=== PATIENT | female | born 1995 | race Caucasian/White ===

== ENCOUNTER 2018-02-15 15:53 | Outpatient (REF) | payer MEDICAID, SELFPAY ==
--- NOTE | 2018-02-15 15:00 | PAPFT_PTH ---
PATIENT: Esthela Baumann LOC: [facility] U#:[id number] AGE/SX: 22/F ROOM: RE02/15/[address]: Saira Ku NP : 1995 BED: DIS: 02/15/2018 SPEC #: [id number] RECD: 02/16/18 12:55 STATUS: SHARLA MOORE #: [id number] CORNELIA: 02/15/18 15:[address]: Saira Ku NP DEPT: [facility] Cytology RECD BY: Zamzam Knott ENTERED: 02/16/18 12:56 SP TYPE: PAPFT OTHR DR: Megan Weaver DNP Tissues: 1 - CX/ENDOCX FOR PAP SMEARS Procedures: PAP THIN PREP/UVM Screening Comments: [id number] (CHLAMYDIA/GC)
[2018-02-17 13:53] LABS: Chlamydia Result Negative; GC Result Negative; Specimen Description SEE COMMENTS
== END 2018-02-15 16:13 ==
LOC: LBN 15:53
PROVIDERS: PCP Nurse Practitioner Gerontology; Visit Provider Nurse Practitioner Women's Health
DX: Z12.4 Encounter for screening for malignant neoplasm of cervix (principal); Z11.3 Encounter for screening for infections with a predominantly sexual mode of transmission
CPT/HCPCS: 87491; 87591; 88142

== ENCOUNTER 2018-06-16 15:50 | Outpatient (REF) | payer MEDICAID, SELFPAY ==
[2018-06-16 16:32] LABS: *AMPHETAMINES SCREEN URINE Negative (Negative); *BARBITURATES SCREEN URINE Negative (Negative); *BENZODIAZEPINES SCREEN URINE Negative (Negative); Cannabinoids THC Negative (Negative); Cocaine Screen,Urine Negative (Negative); METHADONE URINE SCREEN Negative (Negative); OPIATES URINE SCREEN Negative (Negative)
[2018-06-16 16:35] LABS: Tricyclic Antidepressants Negative (Negative)
[2018-06-19 14:04] LABS: Chlamydia Result Negative; GC Result Negative; Specimen Description CERVIX
[2018-06-22 13:37] LABS: Buprenorphine Negative; Norbuprenorphine Negative
== END 2018-06-16 16:10 ==
LOC: LBN 15:50
PROVIDERS: PCP Nurse Practitioner Gerontology; Visit Provider Advanced Practice Midwife
DX: Z34.91 Encounter for supervision of normal pregnancy, unspecified, first trimester (principal)
CPT/HCPCS: 80307; 87491; 87591; 87086

== ENCOUNTER 2018-06-27 16:50 | Emergency (ER) | payer MEDICAID, SELFPAY ==
[2018-06-27 16:54] VITALS: BP 120/83; PULSE 134; RESP 18; TEMP 37.2; O2SAT 100
--- NOTE | 2018-06-27 18:23 | W.ED.GENAD ---
Discharge Plan Disposition Patient Disposition: HOME Condition: Good Discharge Details Chief Complaint: GenMedical Clinical Impression: Flu-like symptoms Primary Care Provider: Megan Weaver ED Provider: [place] Home Meds and New Rx's Prescriptions: New oseltamivir [Tamiflu] 75 mg capsule 75 mg PO BID 5 Days Qty: 10 RF: 0 No Action prenat.vits,edward,nja-sqzs-yfzql tablet 1 tab PO DAILY RF: 0 Discharge Instructions Instructions: Influenza (ED) Additional Instructions: Please take medication as directed and Tylenol as needed for fever. Please follow-up immediately with your primary care provider and your obstetrics game designer/creative director. Please drink 10-12 cups of water per day and stay well-hydrated. If you notice any worsening of your symptoms, or any new symptoms such as vomiting, diarrhea, worse fever, chills, shortness of breath, chest pain, numbness, weakness, or fainting , please return immediately to the emergency department for reevaluation. Please follow up with your primary care provider as soon as possible for reassessment and reevaluation. As always, it was a pleasure participating in your medical care today. Referrals: Megan Weaver, VENEER TAPER [Primary Care Provider] - Discharge Data Discharge Date/Time-TO BE ENTERED AT DEPARTURE: 06/27/18 18:32 Medical Decision Making This is a very pleasant 22-year-old male who is currently 13 weeks who presents with signs and symptoms of chills, cough, mild sore throat, achiness, and fever. She has been taking Tylenol for control of her symptoms and fever. is influenza positive, daughter is influenza positive. She denies any concerning red flags of abdominal pain, pelvic tenderness, neck stiffness. Vital signs demonstrate mild tachycardia initially which did notably improve while here. No evidence of hypoxemia, tachypnea, or shortness of breath, or pleuritic chest pain. Patient's influenza was performed, and rapid test is negative, however with her signs and symptoms clinically consistent with influenza, as well as her 2 close family members both also being positive with influenza and her having identical symptoms to them, I do feel that her clinical disposition and symptoms are significant for influenza. The patient's symptoms started within the last 18 hours, and I feel she would be a candidate for Tamiflu. I had a long discussion with the patient regarding the risks and benefits of Tamiflu during , at this time patient is requesting Tamiflu which I do think is very reasonable due to both her clinical picture, and symptomatology during . Feel that the patient be safely discharged home at this time with close follow-up with her obstetrics game designer/creative director as well as her primary care provider. We discussed red flags which to return, including signs and symptoms concerning for dehydration, pelvic pain, neck stiffness, or other concerning red flags. I have extensively reviewed the treatment plan and discharge instructions with the patient and their family. I have addressed all patient concerns at this time. The patient and family was made aware of what symptoms to monitor for that would warrant a return to the emergency department. Discussed the plan with the patient and family, they demonstrate verbal understanding and agreement with our assessment and plan at this time. HPI General Date/Time Provider Initiated Documentation: 06/27/18 17:14. HPI Narrative: This is a 22-year-old female with no significant past medical history except for being 13 weeks at this time, who presents today with aches, chills, mild cough, mild sore throat, that all started today. Her was recently diagnosed with influenza and her daughter is also flu positive. Patient denies any neck pain, chest pain, shortness of breath, abdominal pain. She denies any vaginal or pelvic discharge. She denies any dysuria, hematuria, or increase in urinary frequency. Patient has not gotten her influenza vaccine this year. Patient denies any hemoptysis. She has no other complaints at this time. She has been taking Tylenol for her chills and fever. She denies any other modifying factors. She has no other complaints at this time. She denies any recent surgeries, IV illicit drug use, or pertinent family history. Related Data Home Medications Medication Instructions Recorded Confirmed 1 tab PO DAILY 04/28/18 06/27/18 vitamin,calcium,hqwxlmkt-cgrl-tidcs acid tablet oseltamivir [Tamiflu] 75 mg PO BID 5 Days #10 cap 06/27/18 Previous Rx's Medication Instructions Recorded oseltamivir [Tamiflu] 75 mg PO BID 5 Days #10 cap 06/27/18 Allergies Allergy/AdvReac Type Severity Reaction Status Date / Time nickel [Nickel] Allergy Intermediate skin Unverified 06/16/18 10:03 reaction amoxicillin [Amoxicillin] Allergy Unknown Unverified 06/16/18 10:03 General Stated Complaint: GenMedical HERNAN: 4 Review of Systems Review of Systems All systems reviewed & are unremarkable except as noted in HPI and below PFSH Medical History Known health problems: none (Acute) Bronchiolitis (Resolved 07/18/94) Pneumonia (Resolved 05/25/02) Social History household members: spouse, children and other details: Evgeny and daughter number of children: 1 Smoking/Tobacco Use Status: Never alcohol intake: former substance use type: does not use Female Reproductive History Menstrual Age of Menarche: 10 Duration of menses: 3-5 days control method: pills History History 2 Para 1 Hx # Term Pregnancies 1 Multiple births 0 Hx # Pregnancies 0 Ectopic pregnancies 0 AB induced 0 Hx Number of Living Children 1 AB spontaneous 0 Exam Narrative Exam Narrative: 1.Const: Well-nourished, Well-developed, appearing stated age 2.Eyes: PERRL, no conjunctival injection, and symmetrical lids. 3.ENT: Atraumatic external nose and ears. Moist MM. Neck: Symmetric, trachea midline, No thyromegaly. Patient demonstrates good movement of cervical neck. There is no nuchal rigidity, no nuchal tenderness. Patient is able to flex the neck without any difficulty or significant pain. Negative Kernig's and Brudzinski sign. No evidence of significant erythema in the posterior oropharynx, no evidence of otitis media or externa. 4.CVS: +S1/S2, No murmurs or gallops. Peripheral pulses 2+ and equal in all extremities. Brisk capillary refill in all extremities. 5.RESP: Unlabored respiratory effort. Clear to auscultation bilaterally. No wheezes rales or rhonchi 6.GI: Soft, Nontender/Nondistended, No hepatosplenomegaly. No guarding or rebound. No evidence of abdominal distention or pain. No pelvic tenderness. 7.MSK: Normocephalic/Atraumatic, Extremities w/o deformity or ttp No cyanosis or clubbing, Normal movement of all extremities 8.Skin: Warm, Dry. No rashes or lesions. 9.Neuro: cutter grind tool technician II-XII grossly intact. Sensation grossly intact, no focal neurologic deficits. 10.Psych: (AAO) x3. Appropriate mood and affect Course Vital Signs Temperature 37.2 C 06/27/18 16:54 Pulse 134 H 06/27/18 16:54 Respiratory Rate 18 06/27/18 16:54 Blood Pressure 120/83 06/27/18 16:54 Pulse Oximetry 100 06/27/18 16:54 Temperature 37.2 C 06/27/18 16:54 Temperature Source Temporal Artery Scan 06/27/18 16:54 Pulse 134 H 06/27/18 16:54 Respiratory Rate 18 06/27/18 16:54 Respiratory Effort Non-Labored 06/27/18 17:06 Respiratory Depth Normal 06/27/18 17:06 Respiratory Pattern Normal 06/27/18 17:06 Blood Pressure 120/83 06/27/18 16:54 Pulse Oximetry 100 06/27/18 16:54 Oxygen Delivery Method Room Air 06/27/18 16:54 Oxygen Flow Rate 0 06/27/18 16:54 Lab/Test Results Lab/Test Results: 06/27/18 17:35 Nasopharynx Influenza Types A,B Antigen - Final
[2018-06-27 18:34] VITALS: BP 120/83; PULSE 110; RESP 18; TEMP 37.2; O2SAT 100
== END 2018-06-27 18:32 | disposition home or self-care (01) ==
PROVIDERS: Emergency Provider Student in an Organized Health Care Education/Training Program; PCP Nurse Practitioner Gerontology
DX: J11.1 Influenza due to unidentified influenza virus with other respiratory manifestations (principal); Z3A.13 13 weeks gestation of pregnancy
CPT/HCPCS: 87449; 99283

== ENCOUNTER 2018-07-11 11:12 | Outpatient (CLI) | payer MEDICAID, SELFPAY ==
[2018-07-11 11:51] LABS: Abs Immature Grans 0.04 k/cumm (0.0-0.09); Absolute Basophil Count 0.02 k/cumm (0.0-0.2); Absolute Eosinophil Count 0.06 k/cumm (0.0-0.7); Absolute Lymphocyte Count 1.45 k/cumm (1.2-3.4); Absolute Monocyte Count 0.56 k/cumm (0.11-0.7); Absolute Neutrophil Count 5.22 k/cumm (1.2-6.7); Basophils % 0.3; Eosinophils % 0.8; HCT 32.5 % (36.0-46.0); HGB 11.6 g/dL (12.0-15.5); Immature Grans % 0.5; Lymphocytes % 19.7; Mean Corp. HGB Concentration 35.7 g/dL (32.0-36.0); Mean Corpuscular Hemoglobin 31.1 pg (27.0-33.0); Mean Corpuscular Volume 87.1 fL (80-95); Monocytes % 7.6; Neutrophils % 71.1; Platelet Count 217 x1000/uL (130-400); RBC 3.73 m/cumm (4.00-5.20); RBC Distribution Width 13.6 % (11.7-14.6); White Blood Cell Count 7.35 k/cumm (4.4-10.8)
[2018-07-11 12:01] LABS: Glucose,1 Hr (Glucola) 96 mg/dL (80-140)
[2018-07-11 12:58] LABS: TSH (W/Ref FT4) 2.79 uIU/mL (0.358-3.74)
[2018-07-12 10:01] LABS: Hepatitis B Surface Ag Negative (NEGAT)
[2018-07-12 10:18] LABS: Hepatitis C Ab w Rflx HCV PCR Negative (NEGAT)
[2018-07-12 11:19] LABS: HIV-1/2 Ag & Ab Screen Negative (NEGAT)
[2018-07-12 11:57] LABS: Syphilis Serology (RPR) Negative (Negative)
[2018-07-12 12:03] LABS: Rubella IgG Ab (UVM) Positive
[2018-07-12 13:13] LABS: Varicella IgG Antibody Equivocal
== END 2018-07-11 11:32 ==
PROVIDERS: PCP Nurse Practitioner Gerontology; Visit Provider Advanced Practice Midwife
DX: Z34.91 Encounter for supervision of normal pregnancy, unspecified, first trimester (principal); Z11.59 Encounter for screening for other viral diseases; Z01.84 Encounter for antibody response examination; Z11.4 Encounter for screening for human immunodeficiency virus [HIV]
CPT/HCPCS: 36415; 80055; 82950; 86787; 86803; 86850; 86900; 86901; 87340; 87389; 84443; 86592; 86762

== ENCOUNTER 2018-08-11 01:25 | Outpatient (CLI) | payer MEDICAID, SELFPAY ==
--- NOTE | 2018-08-11 10:02 | DI.US_ITS ---
SYMPTOMS/DIAGNOSIS: , SURVEY, Z34.90 OB ULTRASOUND: There is a single living intrauterine gestation in variable position. The placenta is posterior. The biometric measurements correspond to 20 weeks 0 days. No abnormalities are identified. The amount of amniotic fluid appears visually normal. IMPRESSION: survey is within normal limits. Many abnormalities cannot be diagnosed. A normal exam does not exclude a congenital anomaly. Radiology No. [id number] LMP: Exam Date: 08/11/18 [facility] wks days on EDC ([facility]) 19+3 - 01/02/19 Confirmed: HISTORY: survey PREDICTED GESTATIONAL AGE NUMBER 19+3 weeks with a range of 18+3 weeks to 20+3 weeks. 1 Determined by 1STUS X LMP___HISTORY Info. pertaining to fetus # PLACENTA PRESENTATION Grade I Cephalic___ Anterior___Posterior X Breech____ Right Left Transverse(head right___ Fundal___Low-lying___Previa___ Transverse(head left___ Varying X BIOMETRY AMNIOTIC FLUID BPD: 44 mm 19+2 weeks Normal HC: 175 mm 20+0 weeks AC: 145 mm 19+5 weeks FL: 35 mm 21+0 weeks AMNIOTIC FLUID INDEX >26 WK CRL: mm weeks Cisterna Magna: 6 mm CI: 73 RUQ: LUQ Cerebellum: 2.0 cm EFW: 343 grams Percentile 89% RLQ: LLQ Total: cms Composite AGE= 20+0 wks EDC by US 12/29/18 BIOPHYSICAL PROFILE ANATOMY IDENTIFIED SCORE 0/2 Heart: 4-Chamber X Rate: 143 BPM LVOT: X RVOT: X Amniotic Fluid(>2cms)____ Stomach: X Kidneys: X Respirations (>30 secs) Bladder: X Post. Fossa: X Body Flex/Extension 3 vessel cord: X Ventricles: X cord insertion: X Lips: X Extremity Flex/Extension spinal morphology: X Nose: X Total Score= Palate: X NS=not seen
== END 2018-08-11 01:45 ==
PROVIDERS: PCP Nurse Practitioner Family; Visit Provider Advanced Practice Midwife
DX: Z34.92 Encounter for supervision of normal pregnancy, unspecified, second trimester (principal)
CPT/HCPCS: 76805

== ENCOUNTER 2018-10-06 08:45 | Outpatient (CLI) | payer MEDICAID, SELFPAY ==
[2018-10-06 10:25] LABS: HCT 34.2 % (36.0-46.0); Mean Corp. HGB Concentration 35.1 g/dL (32.0-36.0); Mean Corpuscular Hemoglobin 30.9 pg (27.0-33.0); Mean Corpuscular Volume 88.1 fL (80-95); Mean Platelet Volume 10.9 fL (8.0-11.0); Platelet Count 213 x1000/uL (130-400); RBC 3.88 m/cumm (4.00-5.20); White Blood Cell Count 8.62 k/cumm (4.4-10.8)
[2018-10-06 10:31] LABS: Glucose,1 Hr (Glucola) 83 mg/dL (80-140)
== END 2018-10-06 09:05 ==
PROVIDERS: Advanced Practice Midwife; PCP Nurse Practitioner Family; Visit Provider Advanced Practice Midwife
DX: Z34.93 Encounter for supervision of normal pregnancy, unspecified, third trimester (principal)
CPT/HCPCS: 36415; 82950; 85027

== ENCOUNTER 2018-12-06 11:21 | Outpatient (REF) | payer MEDICAID, SELFPAY ==
[2018-12-06 12:13] LABS: *AMPHETAMINES SCREEN URINE Negative (Negative); *BARBITURATES SCREEN URINE Negative (Negative); *BENZODIAZEPINES SCREEN URINE Negative (Negative); Cannabinoids THC Negative (Negative); Cocaine Screen,Urine Negative (Negative); METHADONE URINE SCREEN Negative (Negative); OPIATES URINE SCREEN Negative (Negative)
[2018-12-06 12:14] LABS: Tricyclic Antidepressants Negative (Negative)
[2018-12-09 13:00] LABS: Buprenorphine Negative; Norbuprenorphine Negative
== END 2018-12-06 11:41 ==
LOC: LBN 11:21
PROVIDERS: PCP Nurse Practitioner Family; Visit Provider Advanced Practice Midwife
DX: Z34.93 Encounter for supervision of normal pregnancy, unspecified, third trimester (principal); Z36.85 Encounter for antenatal screening for Streptococcus B
CPT/HCPCS: 80307; 87081

== ENCOUNTER 2019-01-02 05:00 | Inpatient (IN) | payer MEDICAID, SELFPAY ==
[2019-01-02 07:40] LABS: HCT 36.3 % (36.0-46.0); HGB 12.8 g/dL (12.0-15.5); Mean Corp. HGB Concentration 35.3 g/dL (32.0-36.0); Mean Corpuscular Hemoglobin 31.3 pg (27.0-33.0); Mean Corpuscular Volume 88.8 fL (80-95); Mean Platelet Volume 10.9 fL (8.0-11.0); Platelet Count 213 x1000/uL (130-400); RBC 4.09 m/cumm (4.00-5.20); RBC Distribution Width 13.9 % (11.7-14.6); White Blood Cell Count 11.89 k/cumm (4.4-10.8)
[2019-01-02] MEDS: Ibuprofen 600 MG TAB PO (17:21)
[2019-01-02] MEDS: Acetaminophen 325 MG TAB 650 MG PO (17:22)
[2019-01-03] MEDS: Ibuprofen 600 MG TAB PO (04:49)
[2019-01-03] MEDS: Docusate Sodium 100 MG CAP PO (04:49)
[2019-01-03] MEDS: Acetaminophen 325 MG TAB 650 MG PO (04:49)
[2019-01-03 07:17] LABS: HCT 34.3 % (36.0-46.0); HGB 11.8 g/dL (12.0-15.5); Mean Corp. HGB Concentration 34.4 g/dL (32.0-36.0); Mean Corpuscular Hemoglobin 30.9 pg (27.0-33.0); Mean Corpuscular Volume 89.8 fL (80-95); Mean Platelet Volume 10.8 fL (8.0-11.0); Platelet Count 211 x1000/uL (130-400); RBC 3.82 m/cumm (4.00-5.20); RBC Distribution Width 14.1 % (11.7-14.6)
== END 2019-01-03 15:10 | disposition home or self-care (01) | DRG 807 ==
PROVIDERS: Admitting Provider Advanced Practice Midwife; PCP Nurse Practitioner Family; Visit Provider Advanced Practice Midwife
DX: O70.0 First degree perineal laceration during delivery (principal); Z37.0 Single live birth; Z3A.40 40 weeks gestation of pregnancy; O75.89 Other specified complications of labor and delivery; O99.214 Obesity complicating childbirth; E66.9 Obesity, unspecified; R42 Dizziness and giddiness; Z67.40 Type O blood, Rh positive
CPT/HCPCS: 36415; 85027; 86850; 86900; 86901

== ENCOUNTER 2019-02-14 14:11 | Outpatient (REF) | payer MEDICAID, SELFPAY ==
--- NOTE | 2019-02-14 14:10 | PAPFT_PTH ---
PATIENT: Esthela Baumann LOC: [facility] U#:[id number] AGE/SX: 23/F ROOM: RE02/14/[address]: Catrachita Dailey CNM : 1995 BED: DIS: 02/14/2019 SPEC #: [id number] RECD: 02/14/19 16:28 STATUS: SHARLA RECatracho #: [id number] CORNELIA: 02/14/19 14:[address]: Catrachita Dailey DEPT: [facility] Cytology RECD BY: Zamzam Knott ENTERED: 02/14/19 16:28 SP TYPE: PAPFT ANNY DR: Sandy Rizzo, WIRE CHIEF Tissues: 1 - CX/ENDOCX FOR PAP SMEARS Procedures: PAP THIN PREP/UVM Screening Comments: [id number]
== END 2019-02-14 14:31 ==
LOC: LBN 14:11
PROVIDERS: PCP Nurse Practitioner Family; Visit Provider Advanced Practice Midwife
DX: Z12.4 Encounter for screening for malignant neoplasm of cervix (principal)
CPT/HCPCS: 88142

== ENCOUNTER 2019-08-15 22:46 | Outpatient (REF) | payer OTHER, SELFPAY | END 2019-08-15 23:06 | LOC: LBN 22:46 | PROVIDERS: PCP Nurse Practitioner Family; Visit Provider Nurse Practitioner Family | DX: J02.9 Acute pharyngitis, unspecified (principal) | CPT/HCPCS: 87077; 87070 ==

== ENCOUNTER 2020-05-08 16:28 | Outpatient (REF) | payer OTHER, SELFPAY ==
[2020-05-11 16:47] LABS: COVID-19 RT-PCR Result NEGATIVE (Negative)
== END 2020-05-08 16:48 ==
LOC: LBO 16:28
PROVIDERS: PCP Nurse Practitioner Family; Visit Provider Nurse Practitioner
DX: J02.9 Acute pharyngitis, unspecified (principal)
CPT/HCPCS: U0003

== ENCOUNTER 2020-09-30 13:11 | Outpatient (REF) | payer OTHER, SELFPAY ==
[2020-10-01 14:28] LABS: Chlamydia Result Negative (Negative); GC Result Negative (Negative)
== END 2020-09-30 13:12 | disposition home or self-care (01) ==
LOC: LBN 13:11
PROVIDERS: PCP Nurse Practitioner Family; Visit Provider Nurse Practitioner Women's Health
DX: Z11.3 Encounter for screening for infections with a predominantly sexual mode of transmission (principal)
CPT/HCPCS: 87491; 87591

== ENCOUNTER 2021-04-20 12:11 | Outpatient (REF) | payer OTHER, SELFPAY | END 2021-04-20 12:12 | disposition home or self-care (01) | LOC: LBN 12:11 | PROVIDERS: PCP Nurse Practitioner Family; Visit Provider Family Medicine | DX: J02.9 Acute pharyngitis, unspecified (principal) | CPT/HCPCS: 87070 ==

== ENCOUNTER 2021-10-05 12:32 | Outpatient (REF) | payer OTHER, SELFPAY ==
--- NOTE | 2021-10-05 11:25 | PAPFT_PTH ---
PATIENT: Esthela Baumann LOC: [facility] U#:[id number] AGE/SX: 26/F ROOM: RE10/05/[address]: Saira Ku NP : 1995 BED: DIS: 10/05/2021 SPEC #: [id number] RECD: 10/05/21 13:20 STATUS: SHARLA RECatracho #: [id number] CORNELIA: 10/05/21 11:[address]: Elmira YI,Saira DEPT: [facility] Cytology RECD BY: Zamzam Knott ENTERED: 10/05/21 13:20 SP TYPE: PAPFT OTHR DR: Sandy Rizzo, SYLVIE Tissues: 1 - CX/ENDOCX FOR PAP SMEARS Procedures: PAP THIN PREP/UVM Screening Comments: [id number] (CHLAMYDIA/GC)
[2021-10-07 08:41] LABS: GC Result Negative (Negative)
[2021-10-07 16:04] LABS: Chlamydia Result Positive (Negative)
== END 2021-10-05 12:33 | disposition home or self-care (01) ==
LOC: LBN 12:32
PROVIDERS: PCP Nurse Practitioner Family; Visit Provider Nurse Practitioner Women's Health
DX: Z11.3 Encounter for screening for infections with a predominantly sexual mode of transmission (principal); Z12.4 Encounter for screening for malignant neoplasm of cervix
CPT/HCPCS: 87491; 87591; 88142

== ENCOUNTER 2021-12-31 12:40 | Outpatient (REF) | payer OTHER, SELFPAY ==
[2022-01-01 15:22] LABS: Chlamydia Result Negative (Negative); GC Result Negative (Negative)
== END 2021-12-31 12:41 | disposition home or self-care (01) ==
LOC: LBN 12:40
PROVIDERS: PCP Nurse Practitioner Family; Visit Provider Advanced Practice Midwife
DX: R30.0 Dysuria (principal); N89.8 Other specified noninflammatory disorders of vagina
CPT/HCPCS: 87491; 87591; 87086; 87480; 87510; 87660

== ENCOUNTER 2022-08-23 17:10 | Outpatient (REF) | payer OTHER, SELFPAY ==
[2022-08-25 14:16] LABS: Chlamydia Result Negative (Negative); GC Result Negative (Negative)
[2022-08-25 15:11] LABS: HSV 1 DNA Result Negative (Negative); HSV 2 DNA Result Positive (Negative)
== END 2022-08-23 17:11 | disposition home or self-care (01) ==
LOC: LBN 17:10
PROVIDERS: PCP Nurse Practitioner Family; Visit Provider Advanced Practice Midwife
DX: N89.8 Other specified noninflammatory disorders of vagina (principal); N90.89 Other specified noninflammatory disorders of vulva and perineum; Z11.3 Encounter for screening for infections with a predominantly sexual mode of transmission
CPT/HCPCS: 87491; 87529; 87591; 87480; 87510; 87660

== ENCOUNTER 2023-01-28 03:01 | Outpatient (CLI) | payer OTHER, SELFPAY ==
[2023-01-28 13:44] LABS: Hemoglobin A1C 4.8 % (<5.7)
[2023-01-28 13:50] LABS: ALT 29 U/L (14-59); AST 17 U/L (15-37); Alkaline Phosphatase 122 U/L (46-116); Anion Gap 8.1 mmol/L (3-11); BUN 15 mg/dL (7-18); Bilirubin, Total 0.5 mg/dL (0.2-1.0); CO2 27.9 mmol/L (21.0-32.0); CREATININE 1.1 mg/dL (0.55-1.02); Calcium 9.2 mg/dL (8.5-10.1); Calculated LDL 42 mg/dL (<100); Chloride 102 mmol/L (98-107); Cholesterol 159 mg/dL (<200); Estimated GFR 69.76 (mL/min/1.73m2); Glucose 94 mg/dL (74-106); HDL Cholesterol 61 mg/dL (40-60); Sodium 138 mmol/L (136-145); TSH (W/Ref FT4) 1.57 uIU/mL (0.36-3.74); Triglyceride 282 mg/dL (<150)
== END 2023-01-28 03:02 | disposition home or self-care (01) ==
LOC: LBO 03:02
PROVIDERS: PCP Nurse Practitioner Family; Visit Provider Nurse Practitioner Family
DX: E66.01 Morbid (severe) obesity due to excess calories (principal)
CPT/HCPCS: 36415; 80053; 80061; 83036; 84443

== ENCOUNTER 2023-09-12 12:54 | Outpatient (REF) | payer OTHER, SELFPAY ==
[2023-09-13 13:19] LABS: Chlamydia Result Negative (Negative); GC Result Negative (Negative)
== END 2023-09-12 12:55 | disposition home or self-care (01) ==
LOC: LBN 12:54
PROVIDERS: PCP Nurse Practitioner Family; Visit Provider Nurse Practitioner Women's Health
DX: Z11.3 Encounter for screening for infections with a predominantly sexual mode of transmission (principal)
CPT/HCPCS: 87491; 87591

== ENCOUNTER 2024-06-18 03:10 | Outpatient (CLI) | payer OTHER, SELFPAY ==
[2024-06-18 09:09] LABS: Abs Immature Grans 0.02 10^3/uL (0.0-0.06); Absolute Basophil Count 0.03 10^3/uL (0.0-0.2); Absolute Eosinophil Count 0.07 10^3/uL (0.0-0.7); Absolute Lymphocyte Count 1.59 10^3/uL (1.2-3.4); Absolute Neutrophil Count 4.17 10^3/uL (1.2-6.7); Basophils % 0.5 %; Eosinophils % 1.1 %; HCT 37.5 % (36.0-46.0); HGB 12.9 g/dL (11.2-15.7); Immature Grans % 0.3 %; Lymphocytes % 25.7 %; MCH 31.1 pg (27.0-33.0); MCHC 34.4 % (32.0-36.0); MCV 90 fL (80-95); MPV 10.1 fL (8.0-11.0); Monocytes % 4.9 %; Neutrophils % 67.5 %; Platelet Count 231 10^3/uL (130-400); RBC 4.15 10^6/uL (3.93-5.22); RDW 13.2 % (11.7-14.6); RDW-SD 43.4 fL; WBC 6.18 10^3/uL (4.4-10.8)
[2024-06-18 09:54] LABS: Chloride 104 mmol/L (98-107); Potassium 4.2 mmol/L (3.5-5.1); Sodium 141 mmol/L (136-145)
[2024-06-18 09:56] LABS: HCG Qual (Serum) Negative
== END 2024-06-18 03:11 | disposition home or self-care (01) ==
PROVIDERS: PCP Nurse Practitioner Family; Visit Provider Obstetrics & Gynecology Gynecology
DX: Z01.818 Encounter for other preprocedural examination (principal); N83.9 Noninflammatory disorder of ovary, fallopian tube and broad ligament, unspecified
CPT/HCPCS: 36415; 80051; 86850; 86900; 86901; 84703; 85025

== ENCOUNTER 2024-06-20 06:12 | Day surgery (SDC) | payer OTHER, SELFPAY ==
[2024-06-20] VITALS (20 sets, daily range): BP systolic 87–134; BP diastolic 43–100; PULSE 62–94; RESP 14–22; TEMP 36.2–36.8; O2SAT 93–100; BMI 41.5
--- NOTE | 2024-06-20 06:18 | W.ANESPRE ---
General Info Date of Service Date Performed: 06/20/24 Height: 5 ft 5.5 in Weight: 114.929 kg Body Mass Index (BMI): 41.5 Surgical Procedure: Operation Date: 06/20/24 07:40 Proposed Procedure Side Surgeon p Salpingectomy Laparoscopic Bilateral Grecia Payne MD Meds Allergies and Home Medications Allergies Allergy/AdvReac Type Severity Reaction Status Date / Time nickel (Nickel) Allergy Intermediate skin Verified 06/20/24 06:21 reaction amoxicillin (Amoxicillin) Allergy Unknown Skin Rash Verified 06/20/24 06:21 Home Medication ?Medication ?Instructions ?Recorded norgestimate 0.25 mg-ethinyl 1 tab PO DAILY #84 tabs 08/15/23 estradiol 35 mcg tablet (Sprintec (28)) valacyclovir 500 mg tablet 500 mg PO DAILY #90 tabs 09/01/23 (Valtrex) tirzepatide (weight loss) 2.5 2.5 mg (0.5 mL) subcut QWEEK #2 mL 06/01/24 mg/0.5 mL subcutaneous pen injector (Zepbound) Current Visit Medications: Current Medications Generic Name Dose Route Start Last Admin Trade Name Freq PRN Reason Stop Dose Admin IV Miscellaneous Supplies 1 each 06/20/24 06:00 Iv Access IV 06/20/24 23:59 DIRECTED SAVANAH Sodium Chloride 0 ml 06/20/24 06:00 Normal Saline Flush 10 Ml Syr IV 06/20/24 23:59 PRN PRN Sodium Chloride 0 ml 06/20/24 06:00 Normal Saline 10 Ml Vial IJ 06/20/24 23:59 DIRECTED PRN Sterile Water 0 ml 06/20/24 06:00 Water,Injection,Sterile 10 Ml Vial IJ 06/20/24 23:59 DIRECTED PRN PFSH Active Problems Active Problems: Problem Status Onset Code Preop examination Acute Z01.818 Encounter for counseling regarding contraception Acute Z30.09 Contraceptive surveillance Chronic Z30.40 Genital herpes Chronic A60.00 Obesity, Class III, BMI 40-49.9 (morbid obesity) Chronic E66.01 Surgical History Surgical History Hx of wisdom tooth extraction No pertinent past surgical history Tobacco Smoking/Tobacco Use Status: Never Passive smoking exposure: No Second hand exposure: No Alcohol Alcohol Intake: current Alcohol intake frequency: holidays/special occasions only Substance Use Substance use: Never Substance use type: does not use Prental History History 2 Para 2 Hx # Term Pregnancies 2 Multiple births 0 Hx # Pregnancies 0 Ectopic pregnancies 0 AB induced 0 Hx Number of Living Children 2 AB spontaneous 0 Past Pregnancies Del. Date GA/Weeks # Preg Succ Route Wgt Sex Labor Lgth Anesthesia Location Prov [facility] 10/12/16 39 No vaginal 2738.564 g Female 6hrs [facility] - CNM 01/02/19 40 No vaginal 3628.739 g Male 1hr 31 min Domingo Lora CNM Delivery Date: 10/12/16 Last Updated by: Cassidy Dailey IOL for low fluid, 6 hr labor Vital Signs and Lab Results Vital Signs Most Recent Vital Signs in EMR: Temp Pulse Pulse Ox 36.8 C 94 H 100 06/20/24 06:33 06/20/24 06:33 06/20/24 06:33 Temp Pulse Pulse Ox 36.8 C 94 H 100 06/20/24 06:33 06/20/24 06:33 06/20/24 06:33 Lab Results Blood Type / Crossmatch: Antibody Screen NEGATIVE 06/18/24 Complete Blood Count: White Blood Count 6.18 10^3/uL (4.4-10.8) 06/18/24 08:58 Red Blood Count 4.15 10^6/uL (3.93-5.22) 06/18/24 08:58 Hemoglobin 12.9 g/dL (11.2-15.7) 06/18/24 08:58 Hematocrit 37.5 % (36.0-46.0) 06/18/24 08:58 Platelet Count 231 10^3/uL (130-400) 06/18/24 08:58 Complete Metabolic Panel: Sodium 141 mmol/L (136-145) 06/18/24 08:58 Potassium 4.2 mmol/L (3.5-5.1) 06/18/24 08:58 Chloride 104 mmol/L (98-107) 06/18/24 08:58 Carbon Dioxide 29.0 mmol/L (21.0-32.0) 06/18/24 08:58 Liver Function Panel: No Data to Display Coagulation Panel: No Data to Display Cardiac Panel: No Data to Display Arterial Blood Gas: No Data to Display Venous Blood Gas: No Data to Display Pancreas Panel: No Data to Display Thyroid Panel: No Data to Display Infectious Disease: No Data to Display Blood Cultures: No Data to Display Toxicology Panel: No Data to Display Panel: Serum HCG, Qualitative Negative 06/18/24 08:58 Anesthesia Assessment and Plan Anesthesia History Personal History: No History of General Anesthesia Family History: No Family History of Anesthesia Complications Exercise Tolerance Exercise Tolerance: Metabolic Equivalents>4 Cardiac & Pulmonary Exam Cardiac Exam: Normal S1/S2 Heart Sounds Pulmonary Exam: Clear Bilateral Breath Sounds Implantable Cardiac Device Does patient have a Pacemaker or an ICD?: No Airway Exam Known Difficult Airway: No Mallampati Class: 1 Mouth Opening: Normal (> 3cm) Thyromental Distance: Greater than 3 cm Neck Range of Motion: Full ROM Neck Circumference: Normal Teeth Condition: Normal Dentition ASA Classification ASA Score: ASA 3 Emergency Case?: No NPO Status NPO Status: NPO Clears >2 hours, Solids >8 hours Status Status: Negative HCG Anesthesia Plan Resuscitation Status: Full Code Anesthesia Technique: General Anesthesia Airway Planned: Endotracheal Tube Monitors Used: Standard Monitors Preoperative Comments:: 28 yo female for lap salping. Sig PMHx: elevated BMI (tirzepatide), never smoker, occ EtOH. Denies GERD. Approximately NPO.
[2024-06-20] MEDS: Lactated Ringers 1,000 ML 125 ML IV (07:00)
--- NOTE | 2024-06-20 08:18 | FALL_PTH ---
PATIENT: Esthela Baumann LOC: [facility] U#:[id number] AGE/SX: 28/F ROOM: RE06/20/[address]: Grecia Payne : 1995 BED: DIS: 06/20/2024 SPEC #: [id number] RECD: 06/20/24 12:46 STATUS: SHARLA MOORE #: [id number] CORNELIA: 06/20/24 08:[address]: Grecia Payne DEPT: Surgical Specimen RECD BY: Zamzam Knott ENTERED: 06/20/24 12:47 SP TYPE: Fall OTHR DR: SYLVIE Saez Tissues: 1 - FALLOPIAN TUBE (STERILIZATION) 2 - FALLOPIAN TUBE (STERILIZATION) Procedures: GROSS AND MICRO LEVEL 2 Comments: [id number]
[2024-06-20] MEDS: Bupivacaine 0.25% Pres-Free 30 ML VIAL (08:26)
--- NOTE | 2024-06-20 08:55 | W.ANESPOSTOP ---
Postoperative Evaluation Date, Time and Location Date Performed: 06/20/24 Time Performed: 08:55 Patient Location: PACU Vital Signs Most Recent Imported Vital Signs: Most Recent Vital Signs Temp Pulse Pulse Ox 36.5 C 94 H 100 06/20/24 08:39 06/20/24 06:33 06/20/24 06:33 Pain Score Most Recent Pain Score: Most Recent Pain Score Pain Level 0 06/20/24 08:39 Assessment Mental Status: Awake (Alert & Oriented to Patient Baseline) Airway and Respiratory Function: Patent airway with normal (patient baseline) respiratory exam Cardiovascular Function: Hemodynamically Stable Hydration Status: Adequately Hydrated Nausea & Vomiting: No Nausea or Vomiting Pain: Pain is tolerable per patient Peripheral Nerve Block: Patient did not receive a nerve block
[2024-06-20] MEDS: fentaNYL 100 MCG/2 ML VIAL IVP (09:02)
--- NOTE | 2024-06-20 09:03 | W.PM.DSUDISC ---
Date of service: 06/20/24 Discharge Plan Disposition Patient Disposition: Home Condition: Stable Discharge Details Reason For Visit: permanent sterilization Attending Provider: Grecia Payne Primary Care Provider: Sandy Rizzo Home Meds and New Rx's Prescriptions: No Action Zepbound 2.5 mg/0.5 mL pen injector 2.5 mg subcut QWEEK Qty: 2 0RF Patient Comments: pt. was taking wegovy has not taken anything since 05/29/24 and will start zepbound after this procedure norgestimate-ethinyl estradiol [Sprintec (28)] 0.25-35 mg-mcg tablet 1 tab PO DAILY Qty: 84 4RF valacyclovir [Valtrex] 500 mg tablet 500 mg PO DAILY Qty: 90 3RF Discharge Instructions Additional Instructions: You may remove the BandAids. Leave the steristrips in place. Stand Alone Forms: Anesthesia Discharge Inst., DSU Post Decontamination Technician SurgeryW/Incision, Ronni Robin (DSU) Referrals: Grecia Payne MD [ [facility] STAFF PHYSICIAN] - 07/03/24 9:20 am Activity:: Activity as Tolerated Diet:: As Tolerated Discharge Orders Discharge Orders: Discharge Order (Routine); Ordered 06/20/24 Ordered By: Grecia Payne DS: Diagnosis Discharge Diagnosis (1) Hx of bilateral salpingectomy: Status: Acute
--- NOTE | 2024-06-20 09:07 | W.PM.OP ---
Operative Note Operative Note PRE-OP DIAGNOSIS: undesired fertility. POST-OP DIAGNOSIS: same PROCEDURE: Bilateral laparoscopic salpingectomy SURGEON: Grecia Payne ASSISTING SURGEON: Claudia Duran ANESTHESIA TYPE: General LMA/ETT Refer to Anesthesia Record ESTIMATED BLOOD LOSS: 0 PATHOLOGY: other (bilateral fallopian tubes) COMPLICATIONS: None Patient was transported to: PACU Patient's condition: stable Indications: 28yo female who desires permanent sterilization. She had used LARC and declined any for of contraception unless it was a permanent sterilization Findings: Normal uterus, adnexa, appendix and upper abdomen. Procedure Description: Patient was taken to the operating room where she was placed in the dorsal supine position and endotracheal anesthesia was administered without difficulty. SCDs were in place. A surgical timeout was performed. She was prepped and draped in the usual sterile fashion. The umbilical fold was infiltrated with 0.25% Marcaine without epinephrine and 12 mm vertical skin incision was made in the umbilicus. Through this incision a varies needle connected to carbon dioxide gas was inserted into the abdomen and intra-abdominal placement confirmed by drop in the intra-abdominal pressure. Once a pneumoperitoneum was established a 12 mm Visiport trocar was introduced into the abdomen under direct visualization. The patient was then placed in Trendelenburg and 2 sites on the abdomen approximately 6 cm diagonal to the right of and left of the umbilical incision were transilluminated the skin infiltrated with 0.25% Marcaine and incised with a scalpel and under direct visualization two 5 mm ports were placed in the right and left lower quadrants respectively. The abdomen was inspected with the above-noted findings. The left fallopian tube located and followed out to its fimbriated end and a LigaSure electrocautery device was used to clamp cauterize and transect the fimbria from the left mesosalpinx to the level of the left uterine cornua. The left fallopian tube was then delivered through the 5 mm lower port and passed off of the operative field. A similar technique was carried out on the right fallopian tube without difficulty. The right fallopian tube was then delivered through the 5 mm lower port Both fallopian tube pedicles were inspected and noted to be hemostatic. Under direct visualization the two 5 mm ports were removed, pneumoperitoneum reduced, and the umbilical port removed. The fascia of the umbilical port site was reapproximated with interrupted suture of 0 Vicryl. The skin of all trocar sites was reapproximated with 4-0 Monocryl and covered with dry sterile dressings. The patient was awakened extubated and transported to recovery area in stable condition. All sponge lap needle counts are correct x2. Date of Procedure: 06/20/24
== END 2024-06-20 10:38 | disposition home or self-care (01) ==
PROVIDERS: PCP Nurse Practitioner Family; Visit Provider Obstetrics & Gynecology Gynecology
PROC: (CPT 58661; principal; 2024-06-20 07:30)
DX: Z30.2 Encounter for sterilization (principal); E66.813 Obesity, class 3; Z68.41 Body mass index [BMI] 40.0-44.9, adult
CPT/HCPCS: 58661; 88302; J0131; J0665; J1100; J1805; J1885; J2250; J2405; J2704; J3010; J3475

== ENCOUNTER 2024-09-12 12:07 | Outpatient (REF) | payer OTHER, SELFPAY ==
--- NOTE | 2024-09-12 11:30 | PAPFT_PTH ---
PATIENT: Esthela Baumann LOC: [facility] U#:[id number] AGE/SX: 29/F ROOM: RE09/12/[address]: Saira Ku NP : 1995 BED: DIS: 09/12/2024 SPEC #: [id number] RECD: 09/12/24 13:00 STATUS: SHARLA MOORE #: [id number] CORNELIA: 09/12/24 11:[address]: Elmira YI,Saira DEPT: [facility] Cytology RECD BY: Zamzam Knott ENTERED: 09/12/24 13:00 SP TYPE: PAPFT OTHR DR: Sandy Rizzo, SLEEP TECHNOLOGIST Tissues: 1 - CX/ENDOCX FOR PAP SMEARS Procedures: PAP THIN PREP/UVM Screening HPV DNA PROBE Comments: [id number] (HPV 16 & 18/45)
== END 2024-09-12 12:08 | disposition home or self-care (01) ==
LOC: LBN 12:07
PROVIDERS: PCP Nurse Practitioner Family; Visit Provider Nurse Practitioner Women's Health
DX: Z12.4 Encounter for screening for malignant neoplasm of cervix (principal)
CPT/HCPCS: 88142; 87624

== ENCOUNTER 2025-01-01 13:45 | Outpatient (REF) | payer OTHER, SELFPAY | END 2025-01-01 13:46 | disposition home or self-care (01) | LOC: LBN 13:45 | PROVIDERS: PCP Nurse Practitioner Family; Visit Provider Obstetrics & Gynecology | DX: R30.0 Dysuria (principal) | CPT/HCPCS: 87077; 87086; 87186 ==

== ENCOUNTER 2025-05-15 15:15 | Outpatient (REF) | payer OTHER, SELFPAY | END 2025-05-15 15:16 | disposition home or self-care (01) | LOC: LBN 15:15 | PROVIDERS: PCP Nurse Practitioner Family; Visit Provider Family Medicine | DX: J02.9 Acute pharyngitis, unspecified (principal) | CPT/HCPCS: 87070 ==